=== PATIENT | male | born 1985 | race Two or more races ===

== ENCOUNTER 2024-10-22 09:15 | Outpatient (RCR) | payer MEDICAID, SELFPAY ==
--- NOTE | 2024-10-22 09:40 | PT.OIERPT ---
PT OP Initial Eval Patient Information Outpatient Physical Therapy Treatment Date: 10/22/24 Visit Reasons: Pain in Right Knee Medical Diagnosis: M25.561 Treatment Dx #1: R knee pain Start of Care: 10/22/24 Date of Onset: 1 yr ago Smoking Status Smoking Status: Current some day smoker Cessation Counseling Provided: GERMAN was advised that quitting smoking is the single most important factor to protect the health of themselves and their family. Discussed the benefits of quitting smoking with patient. Encouraged patient to quit smoking and provided Cessation assistance materials and resources. Tobacco Use: Cigarette Years smoked: 8 Are you interested in quitting?: Yes Would you like additional Smoking Cessation Counseling?: No Initial Assessment Subjective: Pt is 39 yr old congolese speaking male with c/o R knee pain x1 yr. Increased pain with stairs, ladders, kneeling and carrying weight. He points to the posterior and lateral joint line as sites of pain. 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 115 deg flexion -3 deg extension with pain ? Strength MMT: ? HS: 4-/5 ? Quads: 3+/5 limited by pain ? Special testing: ? Patella compression: Positive Step down testing: Positive Varus/valgus: significant/excessive gapping varus>valgus McMurrays testing: positive ? Bounce home test: ?positive ? TTP: moderate of popliteal fossa, lateral joint line ? Assessment: Pt presents with excessive varus gapping consistent with possible medial meniscus irritation/tear/degeneration. Meniscus testing is positive. This contributes to medial/lateral stability and he is encouraged to buy a supportive knee brace. Pt may benefit from skilled therapy and has poor/fair rehab potential to meet goals. Short Term and Rn Licensed Practical Goals 1. Ind with HEP 2. Ascend/descend 1 flight of stairs without R knee pain 3. Tolerate work duties x1 shift with <=3/10 pain Treatment Plan ? 1. Manual therapy ? 2. Therex ? 3. Modalities as indicated, moist heat, ice, estim Frequency and Duration: 1-2x a week for 12 Rx sessions plus evaluation Certification Dates: 10/22/24 to 01/21/25 Procedure Charges OP PT Eval Mod Complex 30 minutes: Yes
== END 2024-10-27 23:59 | disposition home or self-care (01) ==
LOC: CPTX 09:15
PROVIDERS: PCP Physician Assistant; Referring Provider Physician Assistant; Visit Provider Physician Assistant
DX: M25.561 Pain in right knee (principal); Z71.6 Tobacco abuse counseling; F17.210 Nicotine dependence, cigarettes, uncomplicated; I10 Essential (primary) hypertension
CPT/HCPCS: 97162

== ENCOUNTER 2024-11-19 16:00 | Outpatient (RCR) | payer MEDICAID, SELFPAY ==
--- NOTE | 2024-11-19 17:46 | PT.ODAYNRPT ---
PT Outpatient Daily Note OP Daily Note Outpatient Physical Therapy Treatment Date: 11/19/24 Visit Reasons: Pain in RT knee Subjective: The R knee isn't hurting much today Objective: See F/S for therex Assessment: Low tissue irritability with therex Plan: Continue per POC Length of Time (minutes) of Treatment: 30 Minutes Procedure Charges Therapeutic Exercise 30 minutes: Yes
== END 2024-11-26 23:59 | disposition home or self-care (01) ==
LOC: CPTX 16:00
PROVIDERS: PCP Physician Assistant; Referring Provider Physician Assistant; Visit Provider Physician Assistant
DX: M25.561 Pain in right knee (principal); I10 Essential (primary) hypertension
CPT/HCPCS: 97110

== ENCOUNTER 2024-12-03 16:30 | Outpatient (RCR) | payer MEDICAID, SELFPAY ==
--- NOTE | 2024-12-03 17:00 | PT.ODAYNRPT ---
PT Outpatient Daily Note OP Daily Note Outpatient Physical Therapy Treatment Date: 12/03/24 Visit Reasons: Pain in RT knee Subjective: The knees are hurting more today and he went to work for 6 hrs Objective: See F/S for therex Assessment: Moderate tissue irritability with therex of B knees Plan: Continue per POC Length of Time (minutes) of Treatment: 30 Minutes Procedure Charges Therapeutic Exercise 30 minutes: Yes
--- NOTE | 2024-12-31 13:44 | PT.ODS1RPT ---
PT OP Progress/Discharge Note Date of Service: 12/31/24 Progress Note/DC Note Progress Note/Discharge Note: DC Note Patient Information Visit Reasons: Pain in RT knee Service Continue Service or Discharge: Discharge Status Assessment: Pt attended the initial evaluation and 2 Rx visits with inconsistent attendance and no showed the last two. He wasn't making progress with therapy goals at the time of the last appt. Thank you for your referrals. Plan: D/C
== END 2024-12-27 23:59 | disposition home or self-care (01) ==
LOC: CPTX 16:30
PROVIDERS: PCP Physician Assistant; Referring Provider Physician Assistant; Visit Provider Physician Assistant
DX: M25.561 Pain in right knee (principal); I10 Essential (primary) hypertension
CPT/HCPCS: 97110